=== PATIENT | male | born 1985 | race Caucasian/White ===

== ENCOUNTER 2024-08-29 14:59 | Inpatient (IN) | payer OTHER, SELFPAY ==
[2024-08-29 15:05] VITALS: BP 148/94; PULSE 101; RESP 20; TEMP 36.9; O2SAT 98; BMI 25.1
--- NOTE | 2024-08-29 15:14 | ED.GENADULT ---
HPI - General Adult General Chief complaint: Psychiatric Symptoms Stated complaint: Auditory hallucinations, insomnia Time Seen by Provider: 08/29/24 16:56 Source: patient Mode of arrival: ambulatory Limitations: no limitations History of Present Illness ED Provider: Dr. Christina Ram HPI narrative: patient comes to the emergency room reporting anxiety and hearing voices. Patient states that he has never been diagnosed with schizophrenia, only anxiety depression. Patient reports that he has been having difficulty sleeping for several days, patient was seen here in the emergency room earlier today, diagnosed with insomnia, given medications to help sleep. However, patient states that for the last few days, he has been hearing voices, patient states that he thought they were normal voices of people around. However, patient realized today that he was the only 1 hearing does voices. Patient states that he hears his mother's voice who is still alive. However, he has no contact with her and does not want to have any contact either. Patient denies SI or HI Related Data Home Medications ?Medication ?Instructions ?Recorded ?Confirmed alprazolam 0.5 mg tablet 0.5 mg PO DAILY PRN Anxiety 08/29/24 08/29/24 buspirone 10 mg tablet 10 mg PO DIRECTED 08/29/24 08/29/24 buspirone 5 mg tablet 5 mg PO QAM 08/29/24 08/29/24 clonidine HCl 0.1 mg tablet 0.1 - 0.2 mg PO DAILY PRN anxiety 08/29/24 08/29/24 hydroxyzine HCl 25 mg tablet 25 mg PO TID PRN Anxiety 08/29/24 08/29/24 losartan 50 mg tablet 50 mg PO DAILY 08/29/24 08/29/24 mirtazapine 7.5 mg tablet 7.5 mg PO BEDTIME 08/29/24 08/29/24 naltrexone 50 mg tablet 50 mg PO QAM 08/29/24 08/29/24 pantoprazole 20 mg tablet,delayed 20 mg PO DAILY heartburn 08/29/24 08/29/24 release citalopram 40 mg tablet 40 mg PO QAM 08/30/24 08/30/24 Allergies Allergy/AdvReac Type Severity Reaction Status Date / Time No Known Allergies Allergy Verified 08/29/24 15:09 Review of Systems Review of Systems: Constitutional : No Weight loss, No Fever, No Chills, No Night Sweats, No Fatigue, No Malaise ENT/Mouth : No Hearing loss, No Ear Pain, No Nasal Congestion, No Sinus Pain, No Hoarseness, No sore throat, No Rhinorrhea, No Swallowing Difficulty Eyes: No Eye Pain, No Swelling, No Redness, No Foreign Body, No Discharge, No Vision Changes Cardiovascular : No Chest Pain, No SOB, No Dyspnea on Exertion, No Orthopnea, No Edema, No Palpitations Respiratory : No Cough, No Sputum, No Wheezing, No Smoke Exposure, No Dyspnea Gastrointestinal : No Nausea, No Vomiting, No Diarrhea, No Constipation, No abdominal Pain, No Hematochezia, No Melena Genitourinary : no irregular bleeding, No Dysuria, No Urinary Frequency, No Hematuria, No Urinary Incontinence, No Urgency, No Flank Pain, No Urinary Flow Changes, No Hesitancy Musculoskeletal : No joint pain, No Myalgias, No Joint Swelling Skin : No Skin Lesions, No rash Neuro : No Weakness, No Numbness, No Paresthesias, No Loss of Consciousness, No Dizziness, No Headache Psych : No Anxiety/Panic, No Depression, No SI/HI/AH/VH, complaining of new onset of hearing voices, complaining of insomnia Heme/Lymph: No Bruising, No Bleeding,No Lymphadenopathy Endocrine : No Polyuria, No Polydipsia, No Temperature Intolerance PMFSH Past Medical History Medical History (Updated 08/30/24 @ 00:00 by Kael Jackson) Anxiety Social History Social History Smoked in Last 30 Days: No Use of substances other than those prescribed or required for medical reasons: No Advance Directives: No Advance Directives Information Provided: No Physical Exam ED Vital Signs: Vital Signs - 24 hr 08/29/24 15:05 08/29/24 18:05 08/29/24 22:15 Temperature 98.4 F Pulse Rate 101 H 130 H Respiratory Rate 20 16 20 Blood Pressure 148/94 H 137/91 H Pulse Oximetry 98 97 Oxygen Delivery Method Room Air Room Air 08/29/24 23:00 08/30/24 00:28 Temperature 98.9 F Pulse Rate 89 93 Respiratory Rate 16 17 Blood Pressure 129/73 Pulse Oximetry 100 Oxygen Delivery Method Room Air BMI result Body Mass Index 25.1 Const Other: Appearance: Alert. Oriented X3. No acute distress. Eyes: Pupils equal, round and reactive to light. ENT: Pharynx normal. Neck: Normal inspection. Neck supple. No lymph nodes noted. No crepitus CVS: Normal heart rate and rhythm. Pulses normal. Normal S1 and S2 Respiratory: No respiratory distress. Breath sounds normal. No Wheezing. No rales Abdomen: Soft and nontender. No rigidity. No distention. Skin: Skin warm and dry. Normal skin color. Normal skin turgor. Extremities: No lower extremity edema. No Lacerations. No Rash Neuro: Oriented X 3. No motor deficit. No sensory deficit. Moving all extremities. No slurred speech. CN 2 through 12 grossly intact Psych: calm, cooperative, normal affect Course Course Course Narrative: RME: 38-year-old male presents to ED for insomnia and anxiety with auditory hallucinations. Patient denies any suicidal ideation or voices told him to hurt himself. Patient just hearing his mother's voice. Labs ordered. Charge nurse made aware for patient to be evaluated. Reevaluation(s) Reevaluation #1: 08/30/24 patient remained stable overnight, patient is inpatient level of care no new complain Time: 07:11 Medications Administered Generic Name Dose Route Start Last Admin Trade Name Freq PRN Reason Stop Dose Admin Alprazolam 0.5 mg 08/29/24 19:46 08/30/24 02:35 Alprazolam 0.5 Mg Tablet PO 0.5 mg DAILY PRN Administration Anxiety Buspirone HCl 10 mg 08/29/24 21:00 08/29/24 23:58 Buspirone Hcl 10 Mg Tablet PO 10 mg BID SHIV Administration Mirtazapine 7.5 mg 08/29/24 21:00 08/29/24 23:59 Mirtazapine 7.5 Mg Tablet PO 7.5 mg BEDTIME SHIV Administration Omeprazole 20 mg 08/30/24 06:30 08/30/24 06:35 Omeprazole 20 Mg Capsule. PO Not Given DAILY@0630 [facility] Discontinued Medications Generic Name Dose Route Start Last Admin Trade Name Freq PRN Reason Stop Dose Admin Diphenhydramine HCl 50 mg 08/29/24 22:05 08/29/24 22:15 Diphenhydramine Hcl 50 Mg/Ml Vial IM 08/29/24 22:06 50 mg ONCE ONE Administration Lorazepam 2 mg 08/29/24 22:05 08/29/24 22:15 Lorazepam 2 Mg/Ml Vial IM 08/29/24 22:06 2 mg STAT STA Administration Olanzapine 10 mg 08/29/24 22:05 08/29/24 22:15 Olanzapine 10 Mg Vial IM 08/29/24 22:06 10 mg STAT STA Administration Olanzapine 10 mg 08/30/24 02:21 08/30/24 02:35 Olanzapine 10 Mg Tablet PO 08/30/24 02:22 10 mg ONCE ONE Administration Medical Decision Making Medical Decision Making [facility] Narrative: my interpretation of labs: Patient's hematology at baseline, chemistry within normal limits, patient's urine toxicology positive for benzodiazepines which were prescribed to him earlier today. patient is not SI or HI, section 12 is not indicated care team consult pending physician observation started at 17:45 Differential Diagnosis Differential Diagnoses: The differential diagnosis associated with the presentation includes ( Schizophrenia, bipolar disorder, sleep deprivation) Admission/Observation Consideration of admission/observation: Escalation of care including admission/observation considered Lab Data [facility] Lab Attestation statement: I reviewed the patient's lab results. 08/29/24 16:30 08/29/24 16:30 Labs: Lab Results 08/29/24 08/29/24 Range/Units 16:30 17:06 WBC 8.8 (4.8-10.8) X10*3/uL RBC 4.34 L (4.60-5.80) X10*6/uL Hgb 13.2 L (14.0-18.0) g/dl Hct 38.7 L (42.0-52.0) % MCV 89.2 (80.0-98.0) fL MCH 30.4 (27.0-33.0) pg MCHC 34.1 (31.0-36.0) g/dl RDW 13.0 (11.0-16.0) % Plt Count 244 (160-400) X10*3/uL MPV 8.6 L (9.4-12.4) fL Immature Gran % (Auto) 0.3 (0.0-0.4) % Neut % (Auto) 84.9 H (45-73) % Lymph % (Auto) 9.7 L (20-40) % [place] % (Auto) 4.9 (2-11) % Eos % (Auto) 0.0 (0-4) % Baso % (Auto) 0.2 (0-2) % Lymph # (Auto) 0.9 L (1.2-4.9) X10*3/uL [place] # (Auto) 0.4 (0.1-1.2) X10*3/uL Eos # (Auto) 0.0 (0.0-0.4) X10*3/uL Baso # (Auto) 0.0 (0.0-0.2) X10*3/uL Abs Immat Gran (auto) 0.03 (0.00-0.03) X10*3/uL Absolute Neuts (auto) 7.5 (2.0-8.3) x10*3/uL Absolute Nucleated RBC 0.000 (0.0-0.012) X10*3/uL Nucleated RBC % (auto) 0.0 (0.0-0.2) /100WBC Sodium 136 (135-145) mmol/L Potassium 3.9 (3.3-5.1) mmol/L Chloride 105 (96-108) mmol/L Carbon Dioxide 23 (22-29) mmol/L Anion Gap 12 (12-20) BUN 18 H (9-16) mg/dL Creatinine 0.93 (0.5-1.4) mg/dL Estim Creat Clear Calc 113.3 Estimated GFR > 60 Random Glucose 110 (60-115) mg/dL Calcium 9.6 (8.4-10.2) mg/dL Total Bilirubin 1.2 H (0.0-1.0) mg/dL AST 36 (5-37) U/L ALT 43 H (0-40) U/L Alkaline Phosphatase 80 (39-117) U/L Total Protein 7.9 (6.5-8.0) g/dL Albumin 5.0 (3.5-5.0) g/dL Urine Color Yellow Urine Appearance Clear Urine pH 6.0 (5.0-9.0) Ur Specific [place] 1.015 (1.005-1.025) Urine Protein Negative (Neg-Trace) mg/dL Urine Glucose (UA) Negative (Negative) mg/dL Urine Ketones 15 (Negative) mg/dL Urine Blood Negative (Negative) Urine Nitrite Negative (Negative) Ur Leukocyte Esterase Negative (Negative) Urine Opiates Screen Not Detected (Not Detect) Ur Buprenorphine Scrn Not Detected (Not Detect) ng/mL Ur Oxycodone Screen Not Detected (Not Detect) ng/mL Urine Methadone Screen Not Detected (Not Detect) ng/mL Urine Fentanyl Screen Not Detected (Not Detect) Ur Barbiturates Screen Not Detected (Not Detect) Ur Phencyclidine Scrn Not Detected (Not Detect) Ur Amphetamines Screen Not Detected (Not Detect) U Benzodiazepines Scrn POSITIVE H (Not Detect) Urine Cocaine Screen Not Detected (Not Detect) U Marijuana (THC) Screen Not Detected (Not Detect) Ethyl Alcohol < 10 mg/dL Critical Care Time Critical Care Time Critical Care Time: Yes Total Critical Care Time: 35 Attestation: I have personally provided critical care time. Time includes review of lab data, radiology results, discussion with consultants, and monitoring for potential decompensation. Intervention performed as documented. Discharge Plan Discharge Clinical Impression: Auditory hallucination, Insomnia Patient Disposition: Still a Patient Prescriptions: No Action losartan 50 mg tablet 50 mg PO DAILY buspirone 5 mg tablet 5 mg PO QAM clonidine HCl 0.1 mg tablet 0.1 - 0.2 mg PO DAILY PRN (Reason: anxiety) naltrexone 50 mg tablet 50 mg PO QAM pantoprazole 20 mg tablet,delayed release (DR/EC) 20 mg PO DAILY alprazolam 0.5 mg tablet 0.5 mg PO DAILY PRN (Reason: Anxiety) buspirone 10 mg tablet 10 mg PO DIRECTED hydroxyzine HCl 25 mg tablet 25 mg PO TID PRN (Reason: Anxiety) mirtazapine 7.5 mg tablet 7.5 mg PO BEDTIME citalopram 40 mg tablet 40 mg PO QAM Interventions: [place]-Suicide Risk Severity Scale Last Done: 08/29/24 18:05 Print Language: Hebrew
[2024-08-29 16:36] LABS: MANUAL DIFF FLAG NO
[2024-08-29 16:41] LABS: Basophils Percent Auto 0.2 % (0-2); Hematocrit 38.7 % (42.0-52.0); Hemoglobin 13.2 g/dl (14.0-18.0); Imm Gran Abs Auto 0.03 X10*3/uL (0.00-0.03); Imm Gran Pct Auto 0.3 % (0.0-0.4); Lymphocytes Absolute Auto 0.9 X10*3/uL (1.2-4.9); Lymphocytes Percent Auto 9.7 % (20-40); Mean Corpuscular HGB Conc 34.1 g/dl (31.0-36.0); Mean Corpuscular Hemoglobin 30.4 pg (27.0-33.0); Mean Corpuscular Volume 89.2 fL (80.0-98.0); Mean Platelet Volume 8.6 fL (9.4-12.4); Monocytes Absolute Auto 0.4 X10*3/uL (0.1-1.2); Monocytes Percent Auto 4.9 % (2-11); Neutrophils Absolute Auto 7.5 x10*3/uL (2.0-8.3); Neutrophils Percent Auto 84.9 % (45-73); Platelet Count 244 X10*3/uL (160-400); Red Blood Count 4.34 X10*6/uL (4.60-5.80); White Blood Count 8.8 X10*3/uL (4.8-10.8)
[2024-08-29 16:55] LABS: Alanine Aminotransferase 43 U/L (0-40); Alkaline Phosphatase 80 U/L (39-117); Anion Gap 12 (12-20); Aspartate Amino Transferase 36 U/L (5-37); Bilirubin Total 1.2 mg/dL (0.0-1.0); Blood Urea Nitrogen 18 mg/dL (9-16); Calcium 9.6 mg/dL (8.4-10.2); Carbon Dioxide 23 mmol/L (22-29); Chloride 105 mmol/L (96-108); Creatinine Clr Calc Pharmacy 113.3; Estimated Glomerular Filt Rate > 60; Ethanol < 10 mg/dL; Glucose Random 110 mg/dL (60-115); Potassium 3.9 mmol/L (3.3-5.1); Sodium 136 mmol/L (135-145); Total Protein 7.9 g/dL (6.5-8.0)
[2024-08-29 17:13] LABS: Appearance Urine Clear; Color Urine Yellow; Glucose Urine UA Negative (Negative); Leukocyte Esterase Urine Negative (Negative); Nitrite Urine Negative (Negative); Specific Gravity - Urine 1.015 (1.005-1.025); Urine Blood Negative (Negative); Urine Ketones 15 mg/dL (Negative); Urine Protein Negative (Neg-Trace)
[2024-08-29 17:24] LABS: Amphetamine Screen Urine Not Detected (Not Detect); Barbiturates, Urine Not Detected (Not Detect); Benzodiazepines Screen Urine POSITIVE (Not Detect); Buprenorphine Scr Not Detected (Not Detect); Cannabinoid Screen Urine Not Detected (Not Detect); Cocaine Screen Urine Not Detected (Not Detect); Fentanyl, urine Not Detected (Not Detect); Methadone Screen, Urine Not Detected (Not Detect); Opiate Screen Urine Not Detected (Not Detect); Oxycodone Screen Urine Not Detected (Not Detect); Phencyclidine Screen Urine Not Detected (Not Detect)
[2024-08-29 18:05] VITALS: RESP 16
--- NOTE | 2024-08-29 18:09 | PC.NURSE ---
pt reports recently over-taking his xanax to deal with recent life stressors such as moving in to a place by himself, going on an MAHENDRA from work, and dealing with his estranged mother. 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 Pt speech is pressure, appears anxious during triage.
[2024-08-29 22:15] VITALS: BP 137/91; PULSE 130; RESP 20; O2SAT 97
[2024-08-29] MEDS: OLANZapine 10 MG VIAL IM (22:15)
[2024-08-29] MEDS: LORazepam 2 MG/ML VIAL IM (22:15)
[2024-08-29] MEDS: diphenhydrAMINE HCL 50 MG/ML VIAL IM (22:15)
[2024-08-29 23:00] VITALS: PULSE 89; RESP 16
--- NOTE | 2024-08-29 23:06 | PC.NURSE ---
Patient self dialoguing, anxious, and restless. As evening progress patient started yelling and screaming intermittently, refused to take HS and PRN medication, behavior escalating engages in high risk behavior standing on bed making posture risk for fall, non [id number], provider notified/ordered olanzapine 10 mg IM, Ativan 2 mg IM, and benadryl 50 mg IM administered as ordered at 2215, currently in bed appears resting, will continue to monitor
[2024-08-29] MEDS: busPIRone HCl 10 MG TABLET PO (23:58)
[2024-08-29] MEDS: Mirtazapine 7.5 MG TABLET PO (23:59)
[2024-08-30 00:28] VITALS: BP 129/73; PULSE 93; RESP 17; TEMP 37.2; O2SAT 100
[2024-08-30] MEDS: ALPRAZolam 0.5 MG TABLET PO (02:35)
[2024-08-30] MEDS: OLANZapine 10 MG TABLET PO (02:35)
--- NOTE | 2024-08-30 06:12 | PC.NURSE ---
Patient was S/P chemical restraint with moderate + effect, continue to be restless/unable to fall sleep, HS meds administered with no effect, Olanzapine 10 mg PO and PRN Xanax administered at 5 with + effect sleeping since 329, disposition per care team is section 12 inpatient bed search, will continue to monitor
--- NOTE | 2024-08-30 07:16 | PC.NURSE ---
Assumed care of patient at 0645, patient appears to be sleeping this am, respirations even and unlabored, no apparent distress noted. Continue plan of care for inpatient bedsearch
--- NOTE | 2024-08-30 09:27 | PC.NURSE ---
Will hold off on morning medications due to patient be sedated due to previously administered medications on beater boss. Pt reported to this RN yesterday that he has not slept in over 2 days
[2024-08-30 10:25] VITALS: BP 108/66
[2024-08-30] MEDS: Naltrexone HCl 50 MG TABLET PO (10:25)
[2024-08-30] MEDS: busPIRone HCl 10 MG TABLET PO ×2 (10:25→22:01)
[2024-08-30] MEDS: busPIRone HCl 5 MG TABLET PO (10:25)
[2024-08-30] MEDS: Omeprazole 20 MG CAPSULE.DR PO (10:25)
[2024-08-30] MEDS: Escitalopram Oxalate 20 MG TABLET PO (10:25)
--- NOTE | 2024-08-30 12:29 | P.HPPS_ITS ---
HPI Date of Service: 08/30/24 Chief Complaint: crisis Sources of Information: patient interviewed, chart reviewed and crisis/core team assessment reviewed HPI Subjective Notes: Barber Warning and Conditional Voluntary Narrative: Patient is a 38-year-old male with history of MDD, PTSD and alcohol use disorder who self presented to ER due to anxiety, auditory hallucinations and paranoia secondary to insomnia and not sleeping for the past 50+ hours. Per crisis report, patient reports he realized the voices he was hearing were hallucinations after he called the police on his neighbors who he thought were planning to kill him. Patient reports that he was drinking heavily over Alia and taking a lot of his prescribed Xanax . He reports running out at the start of the year and he started withdrawing. Patient reports hallucinations began over the weekend where he started hearing his neighbors arguing and plotting to kill him. Patient reports he got a hotel room because he thought he was hearing kids yelling. Patient reports he has never had these symptoms in the past; has been taking Xanax since he was a teenager but never started to over use until this past fall. He reports not sleeping in 50+ hours. Denies SI/HI. No history of SA/SIB. During admission assessment, patient presents alert and oriented x3. Calm and cooperative. Patient reports he came to the hospital due to running out of his prescribed Xanax and unable to get a refill due to it being too soon. Patient stated, I overused it and then realized it. I went into withdrawal and started hearing voices. I think it was a combination of not sleeping, alcohol withdrawal and benzo withdrawal that made me that way . Patient reports having auditory hallucinations starting 4 days ago but woke up this morning in did not hear them after being able to sleep last night. Patient reports having major stressors through the holidays which increased his use of Xanax. Patient stated, I was having stress from moving, my mom trying to force herself back into my life, along with the fact that I hate my job . Patient reports that he does not want to continue drinking but is not interested in going to a substance abuse program. Patient stated, I was sober for a year and a half without going to AA or anything. I can do it on my own . Denies withdrawal symptoms at this time. He is hoping to benefit from attending groups while on the unit and regulate his sleep. Denies SI/HI/VH/AH. Past Psychiatric History: Patient reports this is his 1st inpatient psychiatric hospitalization. History of attending [facility] and [facility] through [facility] in July 2024. Psychiatrist: Dr. Baker Therapist: Ryanne Pool (same therapist for the past 10 years) Medical Evaluation Reviewed: Yes [facility] Medical History (Updated 08/30/24 @ 15:18 by Sarah Barney NP) Anxiety Family History: Mother: Depression/anxiety Social History: Lives alone. Single. No kids. 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 Bachelor's degree. Substance History: Patient reports drinking 6 nips 4 times a week for the past 4 months. He reports a year and a half sobriety prior to this. Was drinking a pt of liquor a day for 8 years. Denies any other substance use. Trauma History: Yes Diagnostics Vital Signs (24Hr): Vital Signs - 24 hr 08/29/24 15:05 08/29/24 18:05 08/29/24 22:15 Temperature 98.4 F Pulse Rate 101 H 130 H Respiratory Rate 20 16 20 Blood Pressure 148/94 H 137/91 H Pulse Oximetry 98 97 Oxygen Delivery Method Room Air Room Air 08/29/24 23:00 08/30/24 00:28 08/30/24 10:25 Temperature 98.9 F Pulse Rate 89 93 Respiratory Rate 16 17 Blood Pressure 129/73 108/66 Pulse Oximetry 100 Oxygen Delivery Method Room Air BMI result Body Mass Index 25.1 Labs 08/29/24 16:30 08/30/24 14:04 Labs: Laboratory Results - last 48 hr 08/29/24 08/29/24 16:30 17:06 WBC 8.8 RBC 4.34 L Hgb 13.2 L Hct 38.7 L MCV 89.2 MCH 30.4 MCHC 34.1 RDW 13.0 Plt Count 244 MPV 8.6 L Immature Gran % (Auto) 0.3 Neut % (Auto) 84.9 H Lymph % (Auto) 9.7 L [place] % (Auto) 4.9 Eos % (Auto) 0.0 Baso % (Auto) 0.2 Lymph # (Auto) 0.9 L [place] # (Auto) 0.4 Eos # (Auto) 0.0 Baso # (Auto) 0.0 Abs Immat Gran (auto) 0.03 Absolute Neuts (auto) 7.5 Absolute Nucleated RBC 0.000 Nucleated RBC % (auto) 0.0 Sodium 136 Potassium 3.9 Chloride 105 Carbon Dioxide 23 Anion Gap 12 BUN 18 H Creatinine 0.93 Estim Creat Clear Calc 113.3 Estimated GFR > 60 Random Glucose 110 Calcium 9.6 Total Bilirubin 1.2 H AST 36 ALT 43 H Alkaline Phosphatase 80 Total Protein 7.9 Albumin 5.0 Urine Color Yellow Urine Appearance Clear Urine pH 6.0 Ur Specific [place] 1.015 Urine Protein Negative Urine Glucose (UA) Negative Urine Ketones 15 Urine Blood Negative Urine Nitrite Negative Ur Leukocyte Esterase Negative Urine Opiates Screen Not Detected Ur Buprenorphine Scrn Not Detected Ur Oxycodone Screen Not Detected Urine Methadone Screen Not Detected Urine Fentanyl Screen Not Detected Ur Barbiturates Screen Not Detected Ur Phencyclidine Scrn Not Detected Ur Amphetamines Screen Not Detected U Benzodiazepines Scrn POSITIVE H Urine Cocaine Screen Not Detected U Marijuana (THC) Screen Not Detected Ethyl Alcohol < 10 Meds/Allergies Meds Home Medications ?Medication ?Instructions ?Recorded ?Confirmed ?Type alprazolam 0.5 mg tablet 0.5 mg PO DAILY PRN Anxiety 08/29/24 08/29/24 History buspirone 10 mg tablet 10 mg PO DIRECTED 08/29/24 08/29/24 History buspirone 5 mg tablet 5 mg PO QAM 08/29/24 08/29/24 History clonidine HCl 0.1 mg tablet 0.1 - 0.2 mg PO DAILY PRN anxiety 08/29/24 08/29/24 History hydroxyzine HCl 25 mg tablet 25 mg PO TID PRN Anxiety 08/29/24 08/29/24 History losartan 50 mg tablet 50 mg PO DAILY 08/29/24 08/29/24 History mirtazapine 7.5 mg tablet 7.5 mg PO BEDTIME 08/29/24 08/29/24 History naltrexone 50 mg tablet 50 mg PO QAM 08/29/24 08/29/24 History pantoprazole 20 mg tablet,delayed 20 mg PO DAILY heartburn 08/29/24 08/29/24 History release citalopram 40 mg tablet 40 mg PO QAM 08/30/24 08/30/24 History Allergies Allergies Allergy/AdvReac Type Severity Reaction Status Date / Time No Known Allergies Allergy Verified 08/29/24 15:09 Mental Status Exam Mental Status Exam Narrative: Pt is alert and oriented; behavior is cooperative and calm; dressed in casual attire; mood is described as anxious ; eye contact appropriate; Speech is normal rate, volume and not pressured; thought process is organized; Thought content is on tx; otherwise pertinent to relevant topics and without any delusional content, paranoid ideations or grandiosity; denies SI/HI/AH/VH. Assessment & Plan Assessment & Plan (1) MDD (major depressive disorder), recurrent episode: Status: Acute Code(s): F33.9 - Major depressive disorder, recurrent, unspecified (2) PTSD (post-traumatic stress disorder): Status: Acute Code(s): F43.10 - Post-traumatic stress disorder, unspecified (3) Alcohol use disorder: Status: Acute Code(s): F10.90 - Alcohol use, unspecified, uncomplicated (4) Benzodiazepine abuse: Status: Acute Code(s): F13.10 - Sedative, hypnotic or anxiolytic abuse, uncomplicated Plan Patient is a 38-year-old male with history of MDD, PTSD and alcohol use disorder who self presented to ER due to anxiety, auditory hallucinations and paranoia secondary to insomnia and not sleeping for the past 50+ hours. Plan: CV 15 minute safety checks Continue home medications Increase Remeron to 15mg PO bedtime Consult to addiction medicine Encourage groups Obtain collateral Discharge planning Patient educated on: diagnosis, medication risk/benefits, substance abuse and therapeutic strategies Reason for continued inpatient stay Substantial Risk for: med/psych decompensation Statement Statement: I have reviewed the history and physical and performed a pertinent examination on my patient. No changes have occurred unless specified. If the History and Physical was not performed prior to admission, the Hospitalist's service will be consulted for completing the admission physical. Time Spent With Patient Time: Total time managing care of this patient today _60___ minutes.
[2024-08-30 12:30] VITALS: BP 134/86; PULSE 90; RESP 18; TEMP 36.3; O2SAT 100
--- NOTE | 2024-08-30 14:14 | PC.ADMIT ---
Pt is 38 y.o.male who self presented to the ER d/t insomnia, anxiety, paranoia and auditory hallucinations. Patient stated he was drinking alcohol and taking Xanax over Alia until 08/25/24. Upon stopping alcohol and xanax he started experiencing auditory hallucinations, paranoia and insomnia. Patient stated he attended outpatient therapy in the past for periods of alcohol abuse. Denies history of SI,HI intent or plan. Pt lives alone, no contact with family members. Stated he has a good support from his friends. Upon assessments pt is oriented x4, presented with some anxiety, clear speech. Signed CV. VS: T 97.3, P 90, BP 134/86, R 18, O2sat 100% on RA. Wt 173.6 lbs, Ht 5'10.5 . Patient was already immunized this season for Influenza. Oriented to room and surrounding, adjusting well. Will continue to monitor.
[2024-08-30 14:39] LABS: Alanine Aminotransferase 44 U/L (0-40); Albumin Level 5.1 g/dL (3.5-5.0); Alkaline Phosphatase 83 U/L (39-117); Anion Gap 11 (12-20); Aspartate Amino Transferase 43 U/L (5-37); Bilirubin Total 0.8 mg/dL (0.0-1.0); Blood Urea Nitrogen 26 mg/dL (9-16); Calcium 10.1 mg/dL (8.4-10.2); Carbon Dioxide 27 mmol/L (22-29); Chloride 106 mmol/L (96-108); Creatinine Clr Calc Pharmacy 103.3; Estimated Glomerular Filt Rate > 60; Glucose Random 105 mg/dL (60-115); Potassium 3.9 mmol/L (3.3-5.1); Sodium 140 mmol/L (135-145); Total Protein 8.3 g/dL (6.5-8.0)
[2024-08-30] MEDS: Nicotine Polacrilex 2 MG GUM 4 MG BUCCAL (15:57)
[2024-08-30] MEDS: Nicotine 21 MG PATCH.TD24 TRANSDERMA (16:16)
[2024-08-30] MEDS: valACYclovir HCL 1,000 MG TABLET 1000 MG PO ×2 (17:11→23:12)
[2024-08-30 20:00] VITALS: BP 135/86; PULSE 82; RESP 18; TEMP 36.6; O2SAT 96
[2024-08-30] MEDS: Mirtazapine 15 MG TABLET PO (22:01)
[2024-08-30] MEDS: traZODone HCL 50 MG TABLET PO (23:05)
[2024-08-31] MEDS: hydrOXYzine HCL 25 MG TABLET PO ×2 (00:50→13:11)
[2024-08-31] MEDS: traZODone HCL 50 MG TABLET PO (00:50)
[2024-08-31] MEDS: ALPRAZolam 0.5 MG TABLET PO (06:11)
[2024-08-31] MEDS: Omeprazole 20 MG CAPSULE.DR PO (06:11)
[2024-08-31] MEDS: Oxymetazoline HCl 0.05 % Nasal 15 ML SPRAY 2 SPRAY NOSTRIL-B ×2 (06:16→16:28)
[2024-08-31 08:00] VITALS: BP 128/84; PULSE 103; RESP 16; TEMP 36.7; O2SAT 97
[2024-08-31] MEDS: Nicotine 21 MG PATCH.TD24 TRANSDERMA (08:54)
[2024-08-31] MEDS: Escitalopram Oxalate 20 MG TABLET 40 MG PO (08:55)
[2024-08-31] MEDS: Losartan Potassium 50 MG TABLET PO (08:55)
[2024-08-31] MEDS: busPIRone HCl 10 MG TABLET PO ×2 (08:55→22:36)
[2024-08-31] MEDS: Naltrexone HCl 50 MG TABLET PO (08:56)
[2024-08-31] MEDS: valACYclovir HCL 1,000 MG TABLET 1000 MG PO ×2 (08:56→22:38)
--- NOTE | 2024-08-31 09:15 | P.PNPSI_ITS ---
Subjective Subjective Date of Service: 08/31/24 Reason For Visit: crisis Subjective Notes: Conditional Voluntary Interim History: Active on unit. Patient reports he was able to sleep through the night but woke up screaming d/t nightmares; discussed starting on Prazosin;risks/benefits reviewed. pt agreed to trial. He also reports having auditory hallucinations last night prior to going to bed. encouraged to utilize prn zyprexa. denies SI/HI/VH. Start: Zyprexa 5mg PO bedtime Prazosin 1mg PO bedtime Medication Compliance: Yes Side effects from medications: No Attending Groups: Yes Review of Systems Constitutional: Reports as per HPI Eyes: Reports as per HPI Reports as per HPI Cardiovascular: Reports as per HPI Respiratory: Reports as per HPI Gastrointestinal: Reports as per HPI Genitourinary: Reports as per HPI Musculoskeletal: Reports as per HPI Skin/Breast: Reports as per HPI Reports as per HPI Psychiatric: Reports as per HPI Endocrine: Reports as per HPI Hematologic/Lymphatic: Reports as per HPI Allergic/Immunologic: Reports as per HPI Mental Status Exam Mental Status Exam Narrative: Pt is alert and oriented; behavior is cooperative and calm; dressed in casual attire; mood is described as anxious ; eye contact appropriate; Speech is normal rate, volume and not pressured; thought process is organized; Thought content is on tx; otherwise pertinent to relevant topics and without any delusional content, paranoid ideations or grandiosity; denies SI/HI/VH. AH last night prior to bed. Diagnostics Vital Signs (24Hr): Vital Signs - 24 hr 08/30/24 10:25 08/30/24 12:30 08/30/24 20:00 Temperature 97.3 F 97.9 F Pulse Rate 90 82 Respiratory Rate 18 18 Blood Pressure 108/66 134/86 135/86 Pulse Oximetry 100 96 Oxygen Delivery Method Room Air Room Air 08/31/24 08:00 Temperature 98.1 F Pulse Rate 103 H Respiratory Rate 16 Blood Pressure 128/84 Pulse Oximetry 97 Oxygen Delivery Method Room Air BMI result Body Mass Index 25.1 Labs 08/29/24 16:30 08/30/24 14:04 Labs: Laboratory Results - last 48 hr 08/29/24 08/29/24 08/30/24 16:30 17:06 14:04 WBC 8.8 RBC 4.34 L Hgb 13.2 L Hct 38.7 L MCV 89.2 MCH 30.4 MCHC 34.1 RDW 13.0 Plt Count 244 MPV 8.6 L Immature Gran % (Auto) 0.3 Neut % (Auto) 84.9 H Lymph % (Auto) 9.7 L [place] % (Auto) 4.9 Eos % (Auto) 0.0 Baso % (Auto) 0.2 Lymph # (Auto) 0.9 L [place] # (Auto) 0.4 Eos # (Auto) 0.0 Baso # (Auto) 0.0 Abs Immat Gran (auto) 0.03 Absolute Neuts (auto) 7.5 Absolute Nucleated RBC 0.000 Nucleated RBC % (auto) 0.0 Sodium 136 140 Potassium 3.9 3.9 Chloride 105 106 Carbon Dioxide 23 27 Anion Gap 12 11 L BUN 18 H 26 H Creatinine 0.93 1.02 Estim Creat Clear Calc 113.3 103.3 Estimated GFR > 60 > 60 Random Glucose 110 105 Calcium 9.6 10.1 Total Bilirubin 1.2 H 0.8 AST 36 43 H ALT 43 H 44 H Alkaline Phosphatase 80 83 Total Protein 7.9 8.3 H Albumin 5.0 5.1 H Urine Color Yellow Urine Appearance Clear Urine pH 6.0 Ur Specific [place] 1.015 Urine Protein Negative Urine Glucose (UA) Negative Urine Ketones 15 Urine Blood Negative Urine Nitrite Negative Ur Leukocyte Esterase Negative Urine Opiates Screen Not Detected Ur Buprenorphine Scrn Not Detected Ur Oxycodone Screen Not Detected Urine Methadone Screen Not Detected Urine Fentanyl Screen Not Detected Ur Barbiturates Screen Not Detected Ur Phencyclidine Scrn Not Detected Ur Amphetamines Screen Not Detected U Benzodiazepines Scrn POSITIVE H Urine Cocaine Screen Not Detected U Marijuana (THC) Screen Not Detected Ethyl Alcohol < 10 Medications Medications Current Medications Acetaminophen (Acetaminophen 325 Mg Tablet) 650 mg PO Q6H PRN PRN Reason: Headache/Pain Mild Scale (1-3) Al Hydroxide/Mg Hydroxide (Magnesium Hydrox/Alum Hydrox 30 Ml Oral.Susp) 30 ml PO Q6H PRN PRN Reason: Heartburn/Nausea Alprazolam (Alprazolam 0.5 Mg Tablet) 0.5 mg PO DAILY PRN PRN Reason: Anxiety Last Admin: 08/31/24 06:11 Dose: 0.5 mg Buspirone HCl (Buspirone Hcl 10 Mg Tablet) 10 mg PO BID SHIV Last Admin: 08/31/24 08:55 Dose: 10 mg Clonidine HCl (Clonidine Hcl 0.1 Mg Tablet) 0.1 mg PO BID PRN; Protocol PRN Reason: anxiety Escitalopram Oxalate (Escitalopram Oxalate 20 Mg Tablet) 40 mg PO DAILY [facility] Last Admin: 08/31/24 08:55 Dose: 40 mg Hydroxyzine HCl (Hydroxyzine Hcl 25 Mg Tablet) 25 mg PO TID PRN PRN Reason: Anxiety Last Admin: 08/31/24 00:50 Dose: 25 mg Losartan Potassium (Losartan Potassium 50 Mg Tablet) 50 mg PO DAILY [facility]; Protocol Last Admin: 08/31/24 08:55 Dose: 50 mg Magnesium Hydroxide (Milk Of Magnesia 30 Ml Oral.Susp) 30 ml PO DAILY PRN PRN Reason: Constipation Mirtazapine (Mirtazapine 15 Mg Tablet) 15 mg PO BEDTIME [facility] Last Admin: 08/30/24 22:01 Dose: 15 mg Naltrexone HCl (Naltrexone Hcl 50 Mg Tablet) 50 mg PO DAILY [facility] Last Admin: 08/31/24 08:56 Dose: 50 mg Nicotine (Nicotine 21 Mg Patch.Td24) 21 mg TRANSDERMA DAILY [facility] Last Admin: 08/31/24 08:54 Dose: 21 mg Nicotine Polacrilex (Nicotine Polacrilex 2 Mg Gum) 4 mg BUCCAL Q2H PRN PRN Reason: Nicotine Cravings Last Admin: 08/30/24 15:57 Dose: 4 mg Olanzapine (Olanzapine 5 Mg Tablet) 5 mg PO Q4H PRN PRN Reason: agitation Omeprazole (Omeprazole 20 Mg Capsule.Dr) 20 mg PO DAILY@0630 [facility] Last Admin: 08/31/24 06:11 Dose: 20 mg Oxymetazoline HCl (Oxymetazoline Hcl 0.05 % Nasal 15 Ml [place]) 2 spray NOSTRIL- B BID PRN PRN Reason: Congestion Stop: 09/02/24 17:38 Last Admin: 08/31/24 06:16 Dose: 2 spray Trazodone HCl (Trazodone Hcl 50 Mg Tablet) 50 mg PO BEDTIME MRX1 PRN PRN Reason: Insomnia Last Admin: 08/31/24 00:50 Dose: 50 mg Valacyclovir HCl (Valacyclovir Hcl 1,000 Mg Tablet) 1,000 mg PO Q12H [facility] Last Admin: 08/31/24 08:56 Dose: 1,000 mg Allergies Allergies Allergy/AdvReac Type Severity Reaction Status Date / Time No Known Allergies Allergy Verified 08/29/24 15:09 Assessment & Plan Assessment & Plan (1) MDD (major depressive disorder), recurrent episode: Status: Acute Code(s): F33.9 - Major depressive disorder, recurrent, unspecified (2) PTSD (post-traumatic stress disorder): Status: Acute Code(s): F43.10 - Post-traumatic stress disorder, unspecified (3) Alcohol use disorder: Status: Acute Code(s): F10.90 - Alcohol use, unspecified, uncomplicated (4) Benzodiazepine abuse: Status: Acute Code(s): F13.10 - Sedative, hypnotic or anxiolytic abuse, uncomplicated Plan Patient is a 38-year-old male with history of MDD, PTSD and alcohol use disorder who self presented to ER due to anxiety, auditory hallucinations and paranoia secondary to insomnia and not sleeping for the past 50+ hours. Plan: CV 15 minute safety checks Continue home medications Increase Remeron to 15mg PO bedtime Consult to addiction medicine Encourage groups Obtain collateral Discharge planning 08/31: Active on unit. Patient reports he was able to sleep through the night but woke up screaming d/t nightmares; discussed starting on Prazosin;risks/benefits reviewed. pt agreed to trial. He also reports having auditory hallucinations last night prior to going to bed. encouraged to utilize prn zyprexa. denies SI/HI/VH. Start: Zyprexa 5mg PO bedtime Prazosin 1mg PO bedtime Patient educated on: diagnosis and medication risk/benefits Reason for continued inpatient stay Substantial Risk for: med/psych decompensation Time Spent With Patient Time: Total time managing care of this patient today _20___ minutes.
[2024-08-31 13:11] VITALS: BP 149/101
[2024-08-31] MEDS: cloNIDine HCL 0.1 MG TABLET PO (13:11)
[2024-08-31 14:27] VITALS: BP 142/84; PULSE 103
[2024-08-31] MEDS: docosanoL 10 % Cream 2 GM TUBE 1 APPL TOPICAL ×2 (14:28→17:36)
[2024-08-31] MEDS: Acetaminophen 325 MG TABLET 650 MG PO (15:05)
--- NOTE | 2024-08-31 15:55 | MHC.RECOVRN ---
AUDIT-C Brief Intervention Pt had positive screen for unhealthy alcohol use on admission, subsequently met with t/w to discuss alcohol use and recovery supports/options. This engineering technical writer met with patient to discuss current alcohol use and concerns related to increased risk of alcohol related problems.? Pt reports drinking since age 23. He moved in with his mom at 30y.o. and this triggered his drinking to increase. He drank anywhere from 1/2 nips to 1 pint and the frequency increased over time. He decided to stop drinking approx 2 years ago and was able to maintain sobriety for 1.5 years. He then again began drinking with safe strategies in place but as time progressed the amount again increased. Pt's goal is abstinence Discussed how alcohol use has impacted health, including negative impact on behavioral including causing depression and SI. Withdrawal History: Pt reports he feels sick when not drinking but has never sought treatment for W/D. Treatment History: None Supports:?friends Discussed risk reduction strategies including drinking below the recommended limit. Provided pt with written resources including information on inpatient and outpatient treatment, EZE, harm reduction, and recovery coaching. Pt plans to stop drinking, go to therapy and see psych, continue Naltrexone, attend fellowship meetings and connect with recovery coaching. Pt provided with t/w contact information if questions or concerns arise. Denies other questions or concerns at this time.
[2024-08-31 19:48] VITALS: BP 116/78; PULSE 91; RESP 18; TEMP 36.8; O2SAT 99
[2024-08-31] MEDS: OLANZapine 5 MG TABLET PO (22:36)
[2024-08-31 22:37] VITALS: BP 133/82
[2024-08-31] MEDS: Prazosin HCL 1 MG CAPSULE PO (22:37)
[2024-08-31] MEDS: Mirtazapine 15 MG TABLET PO (22:37)
[2024-08-31] MEDS: Ibuprofen 600 MG TABLET PO (22:38)
[2024-09-01] MEDS: QUEtiapine Fumarate 25 MG TABLET PO ×2 (00:12→22:50)
[2024-09-01] MEDS: Oxymetazoline HCl 0.05 % Nasal 15 ML SPRAY 2 SPRAY NOSTRIL-B ×2 (06:24→14:19)
[2024-09-01] MEDS: Omeprazole 20 MG CAPSULE.DR PO (06:26)
[2024-09-01 08:00] VITALS: BP 123/82; PULSE 96; RESP 14; TEMP 36.8; O2SAT 99
[2024-09-01] MEDS: Nicotine 21 MG PATCH.TD24 TRANSDERMA (09:11)
[2024-09-01] MEDS: busPIRone HCl 10 MG TABLET PO ×2 (09:12→22:50)
[2024-09-01] MEDS: Escitalopram Oxalate 20 MG TABLET 40 MG PO (09:12)
[2024-09-01] MEDS: Losartan Potassium 50 MG TABLET PO (09:12)
[2024-09-01] MEDS: Naltrexone HCl 50 MG TABLET PO (09:12)
[2024-09-01] MEDS: valACYclovir HCL 1,000 MG TABLET 1000 MG PO ×2 (09:12→22:50)
[2024-09-01] MEDS: docosanoL 10 % Cream 2 GM TUBE 1 APPL TOPICAL ×4 (09:30→17:19)
--- NOTE | 2024-09-01 09:50 | P.PNPSI_ITS ---
Subjective Subjective Date of Service: 09/01/24 Reason For Visit: crisis Subjective Notes: Conditional Voluntary Interim History: Active on unit. social with peers. attending groups. Patient reports feeling better since admission; pt stated, I'm not having any voices and didn't have any nightmares last night. My friend plans on staying with me and I plan on following up with my providers and going to the partial hospitalization program . focused on sobriety and treatment. denies SI/HI/VH/AH. He is requesting to be discharged tomorrow d/t the acuity of the unit. Medication Compliance: Yes Side effects from medications: No Attending Groups: Yes Review of Systems Constitutional: Reports as per HPI Eyes: Reports as per HPI Reports as per HPI Cardiovascular: Reports as per HPI Respiratory: Reports as per HPI Gastrointestinal: Reports as per HPI Genitourinary: Reports as per HPI Musculoskeletal: Reports as per HPI Skin/Breast: Reports as per HPI Reports as per HPI Psychiatric: Reports as per HPI Endocrine: Reports as per HPI Hematologic/Lymphatic: Reports as per HPI Allergic/Immunologic: Reports as per HPI Mental Status Exam Mental Status Exam Narrative: Pt is alert and oriented; behavior is cooperative and calm; dressed in casual attire; mood is described as good ; eye contact appropriate; Speech is normal rate, volume and not pressured; thought process is organized; Thought content is on tx; otherwise pertinent to relevant topics and without any delusional content, paranoid ideations or grandiosity; denies SI/HI/VH/AH. Diagnostics Vital Signs (24Hr): Vital Signs - 24 hr 08/31/24 13:11 08/31/24 14:27 08/31/24 19:48 Temperature 98.2 F Pulse Rate 103 H 91 Respiratory Rate 18 Blood Pressure 149/101 H 142/84 H 116/78 Pulse Oximetry 99 Oxygen Delivery Method Room Air 08/31/24 22:37 09/01/24 08:00 Temperature 98.2 F Pulse Rate 96 Respiratory Rate 14 Blood Pressure 133/82 123/82 Pulse Oximetry 99 Oxygen Delivery Method Room Air BMI result Body Mass Index 25.1 Labs 08/29/24 16:30 08/30/24 14:04 Labs: Laboratory Results - last 48 hr 08/30/24 14:04 Sodium 140 Potassium 3.9 Chloride 106 Carbon Dioxide 27 Anion Gap 11 L BUN 26 H Creatinine 1.02 Estim Creat Clear Calc 103.3 Estimated GFR > 60 Random Glucose 105 Calcium 10.1 Total Bilirubin 0.8 AST 43 H ALT 44 H Alkaline Phosphatase 83 Total Protein 8.3 H Albumin 5.1 H Medications Medications Current Medications Acetaminophen (Acetaminophen 325 Mg Tablet) 650 mg PO Q6H PRN PRN Reason: Headache/Pain Mild Scale (1-3) Last Admin: 08/31/24 15:05 Dose: 650 mg Al Hydroxide/Mg Hydroxide (Magnesium Hydrox/Alum Hydrox 30 Ml Oral.Susp) 30 ml PO Q6H PRN PRN Reason: Heartburn/Nausea Alprazolam (Alprazolam 0.5 Mg Tablet) 0.5 mg PO DAILY PRN PRN Reason: Anxiety Last Admin: 08/31/24 06:11 Dose: 0.5 mg Buspirone HCl (Buspirone Hcl 10 Mg Tablet) 10 mg PO BID SHIV Last Admin: 09/01/24 09:12 Dose: 10 mg Clonidine HCl (Clonidine Hcl 0.1 Mg Tablet) 0.1 mg PO BID PRN; Protocol PRN Reason: anxiety Last Admin: 08/31/24 13:11 Dose: 0.1 mg Docosanol (Docosanol 10 % Cream 2 Gm Tube) 1 appl TOPICAL 5XD SHIV; Protocol Last Admin: 09/01/24 09:30 Dose: 1 appl Escitalopram Oxalate (Escitalopram Oxalate 20 Mg Tablet) 40 mg PO DAILY [facility] Last Admin: 09/01/24 09:12 Dose: 40 mg Hydroxyzine HCl (Hydroxyzine Hcl 25 Mg Tablet) 25 mg PO TID PRN PRN Reason: Anxiety Last Admin: 08/31/24 13:11 Dose: 25 mg Ibuprofen (Ibuprofen 600 Mg Tablet) 600 mg PO Q8H PRN PRN Reason: Pain, Mild (Pain Scale 1-3) Last Admin: 08/31/24 22:38 Dose: 600 mg Losartan Potassium (Losartan Potassium 50 Mg Tablet) 50 mg PO DAILY [facility]; Protocol Last Admin: 09/01/24 09:12 Dose: 50 mg Magnesium Hydroxide (Milk Of Magnesia 30 Ml Oral.Susp) 30 ml PO DAILY PRN PRN Reason: Constipation Mirtazapine (Mirtazapine 15 Mg Tablet) 15 mg PO BEDTIME SHIV Last Admin: 08/31/24 22:37 Dose: 15 mg Naltrexone HCl (Naltrexone Hcl 50 Mg Tablet) 50 mg PO DAILY SHIV Last Admin: 09/01/24 09:12 Dose: 50 mg Nicotine (Nicotine 21 Mg Patch.Td24) 21 mg TRANSDERMA DAILY [facility] Last Admin: 09/01/24 09:11 Dose: 21 mg Nicotine Polacrilex (Nicotine Polacrilex 2 Mg Gum) 4 mg BUCCAL Q2H PRN PRN Reason: Nicotine Cravings Last Admin: 08/30/24 15:57 Dose: 4 mg Olanzapine (Olanzapine 5 Mg Tablet) 5 mg PO Q4H PRN PRN Reason: agitation Olanzapine (Olanzapine 5 Mg Tablet) 5 mg PO BEDTIME [facility] Last Admin: 08/31/24 22:36 Dose: 5 mg Omeprazole (Omeprazole 20 Mg Capsule.Dr) 20 mg PO DAILY@0630 [facility] Last Admin: 09/01/24 06:26 Dose: 20 mg Oxymetazoline HCl (Oxymetazoline Hcl 0.05 % Nasal 15 Ml [place]) 2 spray NOSTRIL- B BID PRN PRN Reason: Congestion Stop: 09/02/24 17:38 Last Admin: 09/01/24 06:24 Dose: 2 spray Prazosin HCl (Prazosin Hcl 1 Mg Capsule) 1 mg PO BEDTIME [facility]; Protocol Last Admin: 08/31/24 22:37 Dose: 1 mg Quetiapine Fumarate (Quetiapine Fumarate 25 Mg Tablet) 25 mg PO BEDTIME MRX1 PRN PRN Reason: insomnia Last Admin: 09/01/24 00:12 Dose: 25 mg Trazodone HCl (Trazodone Hcl 50 Mg Tablet) 50 mg PO BEDTIME MRX1 PRN PRN Reason: Insomnia Last Admin: 08/31/24 00:50 Dose: 50 mg Valacyclovir HCl (Valacyclovir Hcl 1,000 Mg Tablet) 1,000 mg PO Q12H [facility] Last Admin: 09/01/24 09:12 Dose: 1,000 mg Allergies Allergies Allergy/AdvReac Type Severity Reaction Status Date / Time No Known Allergies Allergy Verified 08/29/24 15:09 Assessment & Plan Assessment & Plan (1) MDD (major depressive disorder), recurrent episode: Status: Acute Code(s): F33.9 - Major depressive disorder, recurrent, unspecified (2) PTSD (post-traumatic stress disorder): Status: Acute Code(s): F43.10 - Post-traumatic stress disorder, unspecified (3) Alcohol use disorder: Status: Acute Code(s): F10.90 - Alcohol use, unspecified, uncomplicated (4) Benzodiazepine abuse: Status: Acute Code(s): F13.10 - Sedative, hypnotic or anxiolytic abuse, uncomplicated Plan Patient is a 38-year-old male with history of MDD, PTSD and alcohol use disorder who self presented to ER due to anxiety, auditory hallucinations and paranoia secondary to insomnia and not sleeping for the past 50+ hours. Plan: CV 15 minute safety checks Continue home medications Increase Remeron to 15mg PO bedtime Consult to addiction medicine Encourage groups Obtain collateral Discharge planning 09/01: Active on unit. social with peers. attending groups. Patient reports feeling better since admission; pt stated, I'm not having any voices and didn't have any nightmares last night. My friend plans on staying with me and I plan on following up with my providers and going to the partial hospitalization program . focused on sobriety and treatment. denies SI/HI/VH/AH. He is requesting to be discharged tomorrow d/t the acuity of the unit. Patient educated on: diagnosis, medication risk/benefits and therapeutic strategies Reason for continued inpatient stay Substantial Risk for: stable for discharge Time Spent With Patient Time: Total time managing care of this patient today _20___ minutes.
[2024-09-01] MEDS: Ibuprofen 600 MG TABLET PO (12:50)
[2024-09-01] MEDS: ALPRAZolam 0.5 MG TABLET PO (21:42)
[2024-09-01 22:40] VITALS: BP 144/92; PULSE 86; TEMP 37.5; O2SAT 98
[2024-09-01] MEDS: Mirtazapine 15 MG TABLET PO (22:49)
[2024-09-01] MEDS: Prazosin HCL 1 MG CAPSULE PO (22:49)
[2024-09-01] MEDS: OLANZapine 5 MG TABLET PO (22:49)
[2024-09-02] MEDS: Omeprazole 20 MG CAPSULE.DR PO (06:47)
[2024-09-02] MEDS: ALPRAZolam 0.5 MG TABLET PO (07:14)
[2024-09-02 07:20] VITALS: BP 133/81; PULSE 94; RESP 14; TEMP 37; O2SAT 99
[2024-09-02] MEDS: Escitalopram Oxalate 20 MG TABLET 40 MG PO (08:51)
[2024-09-02] MEDS: Oxymetazoline HCl 0.05 % Nasal 15 ML SPRAY 2 SPRAY NOSTRIL-B (08:51)
[2024-09-02 08:52] VITALS: BP 133/81
[2024-09-02] MEDS: busPIRone HCl 10 MG TABLET PO (08:52)
[2024-09-02] MEDS: Losartan Potassium 50 MG TABLET PO (08:52)
[2024-09-02] MEDS: Naltrexone HCl 50 MG TABLET PO (08:52)
[2024-09-02] MEDS: valACYclovir HCL 1,000 MG TABLET 1000 MG PO (08:52)
--- NOTE | 2024-09-02 09:17 | P.DS_ITS ---
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 Has provider been notified: No Attending physician on discharge: Luis Eduardo Loja Discharging clinician: Sarah Barney DS: Diagnosis Discharge Diagnosis (1) MDD (major depressive disorder), recurrent episode: Status: Acute (2) PTSD (post-traumatic stress disorder): Status: Acute (3) Alcohol use disorder: Status: Acute (4) Benzodiazepine abuse: Status: Acute DS: Medications Discharge Medications Home Medications: Home Medications ?Medication ?Instructions ?Recorded ?Confirmed alprazolam 0.5 mg tablet 0.5 mg PO DAILY PRN Anxiety 08/29/24 08/29/24 buspirone 10 mg tablet 10 mg PO DIRECTED 08/29/24 08/29/24 buspirone 5 mg tablet 5 mg PO QAM 08/29/24 08/29/24 clonidine HCl 0.1 mg tablet 0.1 - 0.2 mg PO DAILY PRN anxiety 08/29/24 08/29/24 hydroxyzine HCl 25 mg tablet 25 mg PO TID PRN Anxiety 08/29/24 08/29/24 losartan 50 mg tablet 50 mg PO DAILY 08/29/24 08/29/24 mirtazapine 7.5 mg tablet 7.5 mg PO BEDTIME 08/29/24 08/29/24 naltrexone 50 mg tablet 50 mg PO QAM 08/29/24 08/29/24 pantoprazole 20 mg tablet,delayed 20 mg PO DAILY heartburn 08/29/24 08/29/24 release citalopram 40 mg tablet 40 mg PO QAM 08/30/24 08/30/24 Mental Status Exam Mental Status Exam Narrative: Pt is alert and oriented; behavior is cooperative and calm; dressed in casual attire; mood is described as good ; eye contact appropriate; Speech is normal rate, volume and not pressured; thought process is organized; Thought content is on tx; otherwise pertinent to relevant topics and without any delusional content, paranoid ideations or grandiosity; denies SI/HI/VH/AH. Data Data Completed and Pending Completed studies during hospitalization [Text1]: 08/29/24 08/29/24 08/30/24 16:30 17:06 14:04 WBC 8.8 RBC 4.34 L Hgb 13.2 L Hct 38.7 L MCV 89.2 MCH 30.4 MCHC 34.1 RDW 13.0 Plt Count 244 MPV 8.6 L Immature Gran % (Auto) 0.3 Neut % (Auto) 84.9 H Lymph % (Auto) 9.7 L Lawrence % (Auto) 4.9 Eos % (Auto) 0.0 Baso % (Auto) 0.2 Lymph # (Auto) 0.9 L Lawrence # (Auto) 0.4 Eos # (Auto) 0.0 Baso # (Auto) 0.0 Abs Immat Gran (auto) 0.03 Absolute Neuts (auto) 7.5 Absolute Nucleated RBC 0.000 Nucleated RBC % (auto) 0.0 Sodium 136 140 Potassium 3.9 3.9 Chloride 105 106 Carbon Dioxide 23 27 Anion Gap 12 11 L BUN 18 H 26 H Creatinine 0.93 1.02 Estim Creat Clear Calc 113.3 103.3 Estimated GFR > 60 > 60 Random Glucose 110 105 Calcium 9.6 10.1 Total Bilirubin 1.2 H 0.8 AST 36 43 H ALT 43 H 44 H Alkaline Phosphatase 80 83 Total Protein 7.9 8.3 H Albumin 5.0 5.1 H Urine Color Yellow Urine Appearance Clear Urine pH 6.0 Ur Specific Soldier 1.015 Urine Protein Negative Urine Glucose (UA) Negative Urine Ketones 15 Urine Blood Negative Urine Nitrite Negative Ur Leukocyte Esterase Negative Urine Opiates Screen Not Detected Ur Buprenorphine Scrn Not Detected Ur Oxycodone Screen Not Detected Urine Methadone Screen Not Detected Urine Fentanyl Screen Not Detected Ur Barbiturates Screen Not Detected Ur Phencyclidine Scrn Not Detected Ur Amphetamines Screen Not Detected U Benzodiazepines Scrn POSITIVE H Urine Cocaine Screen Not Detected U Marijuana (THC) Screen Not Detected Ethyl Alcohol < 10 DS: Summary Hospital Course Hospital Course: Patient is a 38-year-old male with history of MDD, PTSD and alcohol use disorder who self presented to ER due to anxiety, auditory hallucinations and paranoia secondary to insomnia and not sleeping for the past 50+ hours. Per crisis report, patient reports he realized the voices he was hearing were hallucinations after he called the police on his neighbors who he thought were planning to kill him. Patient reports that he was drinking heavily over Alia and taking a lot of his prescribed Xanax . He reports running out at the start of the year and he started withdrawing. Patient reports hallucinations began over the weekend where he started hearing his neighbors arguing and plotting to kill him. Patient reports he got a hotel room because he thought he was hearing kids yelling. Patient reports he has never had these symptoms in the past; has been taking Xanax since he was a teenager but never started to over use until this past fall. He reports not sleeping in 50+ hours. Denies SI/HI. No history of SA/SIB. During admission assessment, patient presents alert and oriented x3. Calm and cooperative. Patient reports he came to the hospital due to running out of his prescribed Xanax and unable to get a refill due to it being too soon. Patient stated, I overused it and then realized it. I went into withdrawal and started hearing voices. I think it was a combination of not sleeping, alcohol withdrawal and benzo withdrawal that made me that way . Patient reports having auditory hallucinations starting 4 days ago but woke up this morning in did not hear them after being able to sleep last night. Patient reports having major stressors through the holidays which increased his use of Xanax. Patient stated, I was having stress from moving, my mom trying to force herself back into my life, along with the fact that I hate my job . Patient reports that he does not want to continue drinking but is not interested in going to a substance abuse program. Patient stated, I was sober for a year and a half without going to AA or anything. I can do it on my own . Denies withdrawal symptoms at this time. He is hoping to benefit from attending groups while on the unit and regulate his sleep. Denies SI/HI/VH/AH. Plan: CV 15 minute safety checks Continue home medications Increase Remeron to 15mg PO bedtime Consult to addiction medicine Encourage groups Obtain collateral Discharge planning Active on unit. social with peers. attending groups. Patient reports feeling better since admission; pt stated, I'm not having any voices and didn't have any nightmares last night. My friend plans on staying with me and I plan on following up with my providers and going to the partial hospitalization program . focused on sobriety and treatment. denies SI/HI/VH/AH. He is requesting to be discharged tomorrow d/t the acuity of the unit. Patient reports feeling good and ready to be discharged ; pt plans on following up with his outpatient providers and PHP. denies SI/HI/VH/AH. Status at Discharge Cognitive/behavioral status at discharge: Patient has insight and demonstrates good judgment in terms of wanting to pursue treatment. Patient is not in imminent risk of harm to self or others and has a safety plan that includes presenting to the closest ER or calling 911 if feeling unsafe. Functional status at discharge: independent ambulation Overall status at discharge: patient is back to baseline Time Spent with Patient Time attestation: Total time managing care of this patient today _20___ minutes. Time spent: Less than 30 minutes Discharge Plan Discharge Anticipated Discharge Date/Time: 09/02/24 11:00 Patient Disposition: Home, Self-Care Discharge Diagnosis: MDD, PTSD, Alcohol use d/o Referrals: [facility] [Other] - 09/21/24 8:00 am (Intake appointment) Elsi Staton MD [Primary Care Provider] - 09/12/24 10:15 am (Your follow up appt has been scheduled with Elsi Stoddard on 09-12-24 @ 10:15am) Discharge Medications: New quetiapine 50 mg tablet 50 mg PO BEDTIME PRN (Reason: insomnia) 30 Days Qty: 30 0RF olanzapine 5 mg Tablet 5 mg PO DAILY PRN (Reason: psychosis) 30 Days Qty: 30 0RF mirtazapine 15 mg Tablet 15 mg PO BEDTIME 30 Days Qty: 30 0RF buspirone 10 mg Tablet 10 mg PO BID 30 Days Qty: 60 0RF prazosin 1 mg Capsule 1 mg PO BEDTIME 30 Days Qty: 30 0RF Protocol: Hold for SBP< HOLD for SBP < : 90 Continued losartan 50 mg tablet 50 mg PO DAILY clonidine HCl 0.1 mg tablet 0.1 - 0.2 mg PO DAILY PRN (Reason: anxiety) naltrexone 50 mg tablet 50 mg PO QAM pantoprazole 20 mg tablet,delayed release (DR/EC) 20 mg PO DAILY hydroxyzine HCl 25 mg tablet 25 mg PO TID PRN (Reason: Anxiety) citalopram 40 mg tablet 40 mg PO QAM alprazolam 0.5 mg tablet 0.5 mg PO DAILY PRN (Reason: Anxiety) 2 Days Qty: 2 0RF Discontinued buspirone 5 mg tablet 5 mg PO QAM buspirone 10 mg tablet 10 mg PO DIRECTED mirtazapine 7.5 mg tablet 7.5 mg PO BEDTIME Discharge Orders: Discharge Order (Routine); Ordered 09/02/24 Ordered By: Sarah Barney Diet: Regular diet Activity on Discharge: As tolerated Stand Alone Forms: Patient Portal Discharge page, Community Support Print Language: Togolese Care Plan Goals: Maintain mood and safe behaviors Take medications as prescribed Continue to pursue sobriety Practice coping skills Continue with outpatient providers and reach out to them as needed Health Concerns: Mood stability and behaviors Sobriety Plan of Treatment: Follow up with your PCP, psychiatric provider and other outpatient providers regarding above concerns Take medications as prescribed Assessment: Patient has insight and demonstrates good judgment in terms of wanting to pursue treatment. Patient is not in imminent risk of harm to self or others and has a safety plan that includes presenting to the closest ER or calling 911 if feeling unsafe. Discharge Date/Time: 09/02/24 10:50
[2024-09-02] MEDS: Nicotine Polacrilex 2 MG GUM 4 MG BUCCAL (09:34)
== END 2024-09-02 10:50 | disposition home or self-care (01) | DRG 885 ==
LOC: HO.ED 17:52 → HO.PADLT16 08-30 11:39
PROVIDERS: Physician Assistant; Admitting Provider Registered Nurse; Emergency Provider Emergency Medicine; PCP Family Medicine; Responsible Provider Registered Nurse; Visit Provider Psychiatry & Neurology Psychiatry
DX: F33.9 Major depressive disorder, recurrent, unspecified (principal); F43.10 Post-traumatic stress disorder, unspecified; F10.90 Alcohol use, unspecified, uncomplicated; F13.10 Sedative, hypnotic or anxiolytic abuse, uncomplicated; Z79.899 Other long term (current) drug therapy
CPT/HCPCS: 36415; 80053; 80307; 81003; 85025; 99285; J1200; J2060; J2359

== ENCOUNTER → 2024-08-30 11:17 | Outpatient (BNV) | payer OTHER, SELFPAY | PROVIDERS: Admitting Provider Registered Nurse; Emergency Provider Emergency Medicine; PCP Family Medicine; Responsible Provider Registered Nurse; Visit Provider Registered Nurse | DX: F33.2 Major depressive disorder, recurrent severe without psychotic features (principal); F13.10 Sedative, hypnotic or anxiolytic abuse, uncomplicated; F10.90 Alcohol use, unspecified, uncomplicated; F43.11 Post-traumatic stress disorder, acute | CPT/HCPCS: 90792; 99231; 99232; 99238 ==

== ENCOUNTER → 2024-09-22 08:30 | Outpatient (BNV) | payer OTHER, SELFPAY | PROVIDERS: Visit Provider Psychiatry & Neurology Psychiatry | DX: F33.9 Major depressive disorder, recurrent, unspecified (principal); F43.10 Post-traumatic stress disorder, unspecified; F10.90 Alcohol use, unspecified, uncomplicated | CPT/HCPCS: 90792 ==

== ENCOUNTER 2024-09-27 09:27 | Outpatient (REF) | payer OTHER, SELFPAY ==
[2024-09-27 13:57] LABS: Amphetamine Screen Urine Not Detected (Not Detect); Barbiturates, Urine Not Detected (Not Detect); Benzodiazepines Screen Urine POSITIVE (Not Detect); Buprenorphine Scr Not Detected (Not Detect); Cannabinoid Screen Urine Not Detected (Not Detect); Cocaine Screen Urine Not Detected (Not Detect); Fentanyl, urine Not Detected (Not Detect); Methadone Screen, Urine Not Detected (Not Detect); Opiate Screen Urine Not Detected (Not Detect); Oxycodone Screen Urine Not Detected (Not Detect); Phencyclidine Screen Urine Not Detected (Not Detect)
== END 2024-09-27 09:28 | disposition home or self-care (01) ==
LOC: HO.LNP 09:27
PROVIDERS: Visit Provider Psychiatry & Neurology Psychiatry
DX: F10.20 Alcohol dependence, uncomplicated (principal); F13.20 Sedative, hypnotic or anxiolytic dependence, uncomplicated; F33.2 Major depressive disorder, recurrent severe without psychotic features
CPT/HCPCS: 80307

== ENCOUNTER 2024-10-06 08:45 | Outpatient (RCR) | payer OTHER, SELFPAY ==
[2024-09-22 11:09] VITALS: BP 118/84; PULSE 87; TEMP 37
[2024-09-22 11:11] VITALS: BMI 24.8
--- NOTE | 2024-09-22 11:44 | P.HPPSP_ITS ---
HPI Date of Service: 09/22/24 Chief Complaint: AUD,PTSD,MDD Sources of Information: patient interviewed and chart reviewed HPI Narrative: Inpatient Psychiatry DC Summary 09/02/2024: 08/30/24 admit details: 38-year-old male with history of MDD, PTSD and alcohol use disorder who self presented to ER due to anxiety, auditory hallucinations and paranoia secondary to insomnia and not sleeping for the past 50+ hours. Per crisis report, patient reports he realized the voices he was hearing were hallucinations after he called the police on his neighbors who he thought were planning to kill him. Patient reports that he was drinking heavily over Alia and taking a lot of his prescribed Xanax . He reports running out at the start of the year and he started withdrawing. Patient reports hallucinations began over the weekend where he started hearing his neighbors arguing and plotting to kill him. Patient reports he got a hotel room because he thought he was hearing kids yelling. Patient reports he has never had these symptoms in the past; has been taking Xanax since he was a teenager but never started to over use until this past fall. He reports not sleeping in 50+ hours. Denies SI/HI. No history of SA/SIB. During admission assessment, patient presents alert and oriented x3. Calm and cooperative. Patient reports he came to the hospital due to running out of his prescribed Xanax and unable to get a refill due to it being too soon. Patient stated, I overused it and then realized it. I went into withdrawal and started hearing voices. I think it was a combination of not sleeping, alcohol withdrawal and benzo withdrawal that made me that way . Patient reports having auditory hallucinations starting 4 days ago but woke up this morning in did not hear them after being able to sleep last night. Patient reports having major stressors through the holidays which increased his use of Xanax. Patient stated, I was having stress from moving, my mom trying to force herself back into my life, along with the fact that I hate my job . Patient reports that he does not want to continue drinking but is not interested in going to a substance abuse program. Patient stated, I was sober for a year and a half without going to AA or anything. I can do it on my own . Denies withdrawal symptoms at this time. He is hoping to benefit from attending groups while on the unit and regulate his sleep. Denies SI/HI/VH/AH. Psychotropic medications included mirtazapine being increased to 15 mg, increasing buspirone to 10 mg twice daily, adding Seroquel and olanzapine as needed. Prazosin at bedtime. Maintaining Celexa, naltrexone, clonidine and Xanax as needed. Today: Overall patient hopeful around partial hospital program. Has been waiting since discharge on 09/02/2024. Reports his main symptoms of concern are anxiety and depression which are higher when there is no structure and therefore the gap between discharge and partial hospital program has been challenging. That being said is very thankful that he has very supportive network around him. This includes to particularly close friends as well as other people. Is taking a leave of absence from work as this is a significant stressor. Is very clear he is not suicidal. No psychosis. No agitation or aggression. We did reflect on his hospital admission and believes that visiting his hometown of [place] was more triggering than he expected, as he did expect this to be more of a healing experience. Overall though thankful that this led to him being forced to deal with deeper trauma, toxic work environment, negative self talk and isolation. Has been maintaining sobriety and has had 1 or 2 thoughts of drinking, but very fleeting. Utilizing [id number] program and attends weekly meetings with a friend 2. Regarding medications, psychiatrist (Danitza Ruelas) whom he has been working with at [facility] for the last few weeks has discontinued buspirone. Has been taking clonidine 2 times per day consistently for the last 3 to 4 days and has found this a little helpful. Remeron was lowered back down to 7.5 mg and 7.5 mg as needed with a goal of lowest medication dose possible. Long-term goal is to get off Celexa as he has been on this for many years and also experiences significant sexual side effects from this. Has not required Seroquel or olanzapine as needed. Use prazosin once. Feels very comfortable with his new prescriber. Also has a therapist he has been working with on a weekly basis for 10 years. Overall we decided maintaining current medications. Following up sometime next week around maintaining current medication regimen, utilizing partial hospital programming and seeing more anxiety and mood symptoms are at that point. [place] positive and supported regarding this approach Past Psychiatric History: Patient one inpatient psychiatric hospitalization- [place] [id number]/7/25 through 09/02/24- Delirium tremens (Alcohol, xanax and no sleep) and depression. History of attending [facility] and IOP through [facility] in July 2024. Psychiatrist: Dr. Danitza Bass through [facility] Therapist: Ryanne Pool (same therapist for the past 10 years) [facility] Medical History (Updated 09/22/24 @ 10:59 by Luly Ram, RN) GERD (gastroesophageal reflux disease) Hypertension Anxiety Surgical History (Updated 09/22/24 @ 10:58 by Luly Ram RN) History of tonsillectomy and adenoidectomy Family History: Mother: Depression/anxiety Social History: Lives alone. Single. No kids. 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 Bachelor's degree. No legal issues Substance History: Alcohol use disorder. History of 18 months sobriety. Recent access Xanax use. Recent delirium tremens withdrawing from both. Trauma History: Yes Diagnostics Vital Signs (24Hr): Vital Signs - 24 hr 09/22/24 11:09 Temperature 98.6 F Pulse Rate 87 Blood Pressure 118/84 BMI result Body Mass Index 24.8 Meds/Allergies Meds Home Medications ?Medication ?Instructions ?Recorded ?Confirmed ?Type clonidine HCl 0.1 mg tablet 0.1 mg PO BID PRN Anxiety 08/29/24 09/22/24 History hydroxyzine HCl 25 mg tablet 25 mg PO TID PRN Anxiety 08/29/24 09/22/24 History losartan 50 mg tablet 50 mg PO DAILY 08/29/24 09/22/24 History naltrexone 50 mg tablet 50 mg PO QAM 08/29/24 09/22/24 History pantoprazole 20 mg tablet,delayed 20 mg PO DAILY heartburn 08/29/24 09/22/24 History release citalopram 40 mg tablet 40 mg PO QAM 08/30/24 09/22/24 History bupropion HCl 150 mg tablet,12 hr 150 mg PO BID 09/22/24 09/22/24 History sustained-release (Wellbutrin SR) mirtazapine 15 mg tablet 7.5 - 15 mg PO BEDTIME 09/22/24 09/22/24 History Allergies Allergies Allergy/AdvReac Type Severity Reaction Status Date / Time No Known Allergies Allergy Verified 08/29/24 15:09 Mental Status Exam Mental Status Exam Narrative: Pleasant. Engaged. Casually dressed and presented. Organized and articulate. Reflective on recent admission and discharge, stressors and supports. Is anxious. No SI or HI. No agitation or psychosis. Insight and judgment good Telehealth Telehealth Telehealth Platform: Other (please specify) ([employer]) Location of provider rendering services: practice address Location of patient: other ([facility]) Patient Identification confirmed using: Name, : Yes Telehealth method: video Patient verbally consented to treatment: Yes Minutes spent on Phone/Video with Pt.: 20 Assessment & Plan Assessment & Plan (1) MDD (major depressive disorder), recurrent episode: Status: Acute Code(s): F33.9 - Major depressive disorder, recurrent, unspecified (2) PTSD (post-traumatic stress disorder): Status: Acute Code(s): F43.10 - Post-traumatic stress disorder, unspecified (3) Alcohol use disorder: Status: Acute Code(s): F10.90 - Alcohol use, unspecified, uncomplicated Plan 38-year-old male, transitioning from recent inpatient level of care and discharged on 09/02/2024. During that admission experienced hallucinations, paranoia in the context of alcohol and Xanax withdrawal. Also experienced PTSD and depressive symptoms. Very engaged in programming. Highly motivated for sobriety and did manage 18 months in the past without formal programming. Utilizing Smart recovery approach this time around. Does have a good support network around him. Could benefit from partial hospital program level of care around nonmedication approaches to help manage PTSD, anxiety and depressive symptoms in a community setting. Also helping with sobriety. Both this and medication together will minimize chances of patient decompensating and therefore minimizing chances of inpatient level of care in the near future. c/w clonidine 2 times per day consistently for the last 3 to 4 days and has found this a little helpful. c/w/ Remeron 7.5 mg bedtime and 7.5 mg as needed with a goal of lowest medication dose possible. Long-term goal is to get off Celexa as he has been on this for many years and also experiences significant sexual side effects from this. Has not required Seroquel or olanzapine as needed. Prazosin as needed Following up with [facility] prescriber sometime next week around maintaining current medication regimen, utilizing partial hospital programming and seeing more anxiety and mood symptoms are at that point. Patient educated on: medication risk/benefits and therapeutic strategies Informed Consent: understands Reason for continued partial hosp. stay Substantial Risk for: rapid decompensation Certification I certify that partial hospital treatment is medically necessary due to the symptoms and problems resulting from the patient's mental illness and the failure to treat the patient at the partial hospital level of care would likely result in the patient requiring inpatient psychiatric care which could not be prevented at a less intensive level of care. Time Spent With Patient Time: Total time managing care of this patient today _45___ minutes.
--- NOTE | 2024-09-22 12:17 | PC.ADMIT ---
Addendum entered by Luly Ram RN 09/22/24 12:46: Patient also stated his outpatient provider discontinued Buspirone. Original Note: Patient is a 38 year old single male who was referred to [facility] by [facility] inpatient behavioral health unit where he was admitted from 08/30/24-09/02/24 after he self presented to the ER for depression, anxiety, insomnia, alcohol use combined with prescription Xanax. Patient reportedly going through withdrawals from Xanax and was hallucinating as a result. He denied history of hallucinations prior to hospitalization. He reports he was under much stress at the time and did not remember how much Xanax he was taking d/t alcohol use. He reports work is stressful. Stated he works for the [employer] and does not want to work in that environment anymore. 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 Patient has been on MAHENDR[employer] from work starting June 30, 2024 until December 16, 2024 to work on his mental health. Reports stresses including purchasing a home for the first time on his own, having to make a career change d/t the current election outcome and his mother coming back into his life and having to set boundaries with her and feeling much guilt surrounding that. Patient is alert and oriented x4. He is calm and cooperative. Thoughts are clear and logical. He presented with depressed mood and anxious affect. He denied SI, no HI. He was given a copy of his safety plan if needed. Patient reports he last drink of alcohol was on 08/25/24 and last use of marijuana was on 08/25/24. He stated he is taking Xanax as prescribed. He reports he does not plan on using any substances as he wants to work on his mental health. No SXS of withdrawal. Medications reconciled with patient and patient's discharge paperwork. He stated his outside prescriber changed his Clonidine dose to 0.1 mg scheduled BID and added Wellbutrin SR 150 mg taking 2 tabs daily. He stated his provider is planning on eventually taking him off of Celexa d/t c/o sexual side effects.
--- NOTE | 2024-09-22 15:32 | PHP/IOPCOSI ---
Pt's case has been opened and reviewed in treatment team.
--- NOTE | 2024-10-03 22:50 | P.PNPSP_ITS ---
Subjective Subjective Date of Service: 10/03/24 Reason For Visit: AUD,PTSD,MDD Interim History: Patient reviewed recent events leading to recent IPLOC on M4. I'm here because alcohol and benzos.. I had a bad experience recently while I was visiting a friend in [place].. and had gotten stressed out by this really weird dynamic which lead to a heavy, uncontrolled week-long bout of drinking upon returning home after the New Year. I started hearing voices that were not there...it was truly terrifying so he checked himself into the hospital. He reports doing much better now. Anxiety is getting better. he is taking naltrexone which he feels is helpful. He reports a 1.5-year period of sobriety from 09/2021 until 01/2024. Since that time he had been drinking here and there: and feels he was managing drinking in moderation until a few weeks ago. I lived the consequences (re:AH), I'm not even interested in drinking at this time . Denies any cravings. Per [facility] he has been prescribed Xanax periodically since 2022. He says that he was misusing benzos only in context of alcohol abuse. He is noted to have picked up a script for alprozolam after discharge from . Mental Status Exam Mental Status Exam Narrative: Pleasant. Engaged. Casually dressed and presented. Organized and articulate. Reflective on recent admission and discharge, stressors and supports. Is anxious. No SI or HI. No agitation or psychosis. Insight and judgment good Diagnostics Vital Signs (24Hr): BMI result Body Mass Index 24.8 Assessment & Plan Assessment & Plan (1) Alcohol use disorder: Status: Acute Code(s): F10.90 - Alcohol use, unspecified, uncomplicated (2) Generalized anxiety disorder with panic attacks: Status: Acute Code(s): F41.1 - Generalized anxiety disorder; F41.0 - Panic disorder [episodic paroxysmal anxiety] (3) Benzodiazepine abuse: Status: Acute Code(s): F13.10 - Sedative, hypnotic or anxiolytic abuse, uncomplicated (4) MDD (major depressive disorder), recurrent episode: Status: Acute Code(s): F33.9 - Major depressive disorder, recurrent, unspecified (5) PTSD (post-traumatic stress disorder): Status: Acute Code(s): F43.10 - Post-traumatic stress disorder, unspecified Plan discharge scheduled in 3 days, no changes to medication regime per patient preference he was interested in discussing/reviewing potential treatment options, especially around strategies to address intractible anxiety continue with treatment plan Patient educated on: diagnosis, medication risk/benefits and substance abuse Informed Consent: understands Reason for contiued partial hosp. stay Substantial Risk for: med/psych decompensation Certification I certify that partial hospital treatment is medically necessary due to the symptoms and problems resulting from the patient's mental illness and the failure to treat the patient at the partial hospital level of care would likely result in the patient requiring inpatient psychiatric care which could not be prevented at a less intensive level of care. Total time managing care of this patient today _30___ minutes. Discharge Plan Discharge Attending provider: Bella Jaffe Medications: No Action losartan 50 mg tablet 50 mg PO DAILY clonidine HCl 0.1 mg tablet 0.1 mg PO BID PRN (Reason: Anxiety) Patient Comments: Patient reports his outside provider prescribed Clonidine 0.1 mg BID naltrexone 50 mg tablet 50 mg PO QAM pantoprazole 20 mg tablet,delayed release (DR/EC) 20 mg PO DAILY hydroxyzine HCl 25 mg tablet 25 mg PO TID PRN (Reason: Anxiety) citalopram 40 mg tablet 40 mg PO QAM quetiapine 50 mg tablet 50 mg PO BEDTIME PRN (Reason: insomnia) 30 Days Qty: 30 0RF olanzapine 5 mg Tablet 5 mg PO DAILY PRN (Reason: psychosis) 30 Days Qty: 30 0RF prazosin 1 mg Capsule 1 mg PO BEDTIME 30 Days Qty: 30 0RF Protocol: Hold for SBP< HOLD for SBP < : 90 alprazolam 0.5 mg tablet 0.5 mg PO DAILY PRN (Reason: Anxiety) 2 Days Qty: 2 0RF mirtazapine 15 mg tablet 7.5 - 15 mg PO BEDTIME Patient Comments: Patient stated his prescriber told him he can take 7.5-15mg QHS bupropion HCl [Wellbutrin SR] 150 mg Tablet Sustained-Release 12 Hr 150 mg PO BID Print Language: Austrian
--- NOTE | 2024-10-06 22:42 | P.PNPSP_ITS ---
Subjective Subjective Date of Service: 10/06/24 Reason For Visit: AUD,PTSD,MDD Interim History: Patient seen for follow-up, anticipating discharge at the end of program today. Feel good, feel ready ? Reports no acute issues or concerns. Medication compliant, medications well- tolerated. Denies any adverse effects.?We discuss ongoing treatment with [facility] in context of recovery from etoh. Patient aware of risks of treatment with [facility]. Says he does not use regularly or on a daily basis, only as PRN and now that he is more aware, plans to utilize his prn more judiciously. Reports mood is stable.? Denies any hopelessness or SI. Denies thoughts of harming self or others at this time. Denies any aggressive ideation or HI. Denies any paranoia or AH or VH. Sleep, appetite, energy stable. Medication Compliance: Yes Side effects from medications: No Attending Groups: Yes Review of Systems Acute medical concerns: No Mental Status Exam Mental Status Exam Narrative: Pleasant. Engaged. Casually dressed and presented. Organized and articulate. Reflective on recent admission and discharge, stressors and supports. Mood stable, affect variable, bright, anxious. No SI or HI. No agitation or psychosis. Insight and judgment good. Diagnostics Vital Signs (24Hr): BMI result Body Mass Index 24.8 Assessment & Plan Assessment & Plan (1) Alcohol use disorder: Status: Acute Code(s): F10.90 - Alcohol use, unspecified, uncomplicated (2) Generalized anxiety disorder with panic attacks: Status: Acute Code(s): F41.1 - Generalized anxiety disorder; F41.0 - Panic disorder [episodic paroxysmal anxiety] (3) Benzodiazepine abuse: Status: Acute Code(s): F13.10 - Sedative, hypnotic or anxiolytic abuse, uncomplicated (4) MDD (major depressive disorder), recurrent episode: Status: Acute Code(s): F33.9 - Major depressive disorder, recurrent, unspecified (5) PTSD (post-traumatic stress disorder): Status: Acute Code(s): F43.10 - Post-traumatic stress disorder, unspecified Plan [facility]charge from [facility] Continue regular medications No refills needed at this time Will defer further medication management to outpatient provider *Safety plan reviewed *Discharge diagnoses, treatment course, discharge plan have been reviewed with patient (including medication regime, medication management, potential side effects) as well as treatment rationale were also revisited Patient educated on: diagnosis, medication risk/benefits and substance abuse Informed Consent: understands Reason for contiued partial hosp. stay Substantial Risk for: stable for discharge Certification I certify that partial hospital treatment is medically necessary due to the symptoms and problems resulting from the patient's mental illness and the failure to treat the patient at the partial hospital level of care would likely result in the patient requiring inpatient psychiatric care which could not be prevented at a less intensive level of care. Total time managing care of this patient today __30__ minutes. Discharge Plan Discharge Attending provider: Bella Jaffe Medications: Continued losartan 50 mg tablet 50 mg PO DAILY clonidine HCl 0.1 mg tablet 0.1 mg PO BID PRN (Reason: Anxiety) Patient Comments: Patient reports his outside provider prescribed Clonidine 0.1 mg BID naltrexone 50 mg tablet 50 mg PO QAM pantoprazole 20 mg tablet,delayed release (DR/EC) 20 mg PO DAILY hydroxyzine HCl 25 mg tablet 25 mg PO TID PRN (Reason: Anxiety) citalopram 40 mg tablet 40 mg PO QAM prazosin 1 mg Capsule 1 mg PO BEDTIME 30 Days Qty: 30 0RF Protocol: Hold for SBP< HOLD for SBP < : 90 alprazolam 0.5 mg tablet 0.5 mg PO DAILY PRN (Reason: Anxiety) 2 Days Qty: 2 0RF mirtazapine 15 mg tablet 7.5 - 15 mg PO BEDTIME Patient Comments: Patient stated his prescriber told him he can take 7.5-15mg QHS bupropion HCl [Wellbutrin SR] 150 mg Tablet Sustained-Release 12 Hr 150 mg PO BID Discontinued quetiapine 50 mg tablet 50 mg PO BEDTIME PRN (Reason: insomnia) 30 Days Qty: 30 0RF olanzapine 5 mg Tablet 5 mg PO DAILY PRN (Reason: psychosis) 30 Days Qty: 30 0RF Stand Alone Forms: Patient Portal Discharge page Patient Education: Depression (DC), Post Traumatic Stress Disorder (DC), Generalized Anxiety Disorder (ED), Alcohol Use Disorder (DC) Print Language: Kiswahili
== END 2024-10-06 23:59 | disposition home or self-care (01) ==
LOC: HO.PHPA 08:45
PROVIDERS: Visit Provider Psychiatry & Neurology Psychiatry
DX: F33.9 Major depressive disorder, recurrent, unspecified (principal); F43.10 Post-traumatic stress disorder, unspecified; F41.1 Generalized anxiety disorder; F41.0 Panic disorder [episodic paroxysmal anxiety]; F10.90 Alcohol use, unspecified, uncomplicated; F13.10 Sedative, hypnotic or anxiolytic abuse, uncomplicated; Z79.899 Other long term (current) drug therapy
CPT/HCPCS: 90791; 90853